=== PATIENT | female | born 1990 | race Caucasian/White ===

== ENCOUNTER 2016-10-04 08:38 | Emergency (ER) | payer MEDICAID ==
[~2016-10-04] VITALS: Ht 160 cm; Wt 58.5 kg
[2016-10-04 08:40] VITALS: Ht 160 cm; Wt 58.5 kg
[2016-10-04] MEDS ORDERED: ACETAMINOPHEN 500 MG TAB PO STA (09:36)
[2016-10-04] MEDS ORDERED: OSLT75C PO (09:44)
[2016-10-04] MEDS ORDERED: D-ME473S18 PO (09:45)
[2016-10-04] MEDS ORDERED: NAPR-688 PO (09:45)
--- NOTE | 2016-10-04 10:22 | ERD ---
ER Documentation Chief Complaint Date/Time DATE: 10/04/16 TIME: 10:18 Chief Complaint fever , body ache , sore throat x 2 days HPI This is a 26-year-old female that presents to the ER with fever, sore throat, cough, body aches, nasal congestion for the last 2 days patient states that her sore throat is worse whenever she swallows. She however denies any difficulty in swallowing. She denies any chest pain or shortness of breath. Patient's cough is dry and it has worsened today. There are a lot of sick people at work. Patient took NyQuil last night, this helped a little bit. Patient denies any urinary frequency or dysuria. She denies any n/v/d. ROS 12 point review of systems was done, all negative except per HPI. Medications Home Meds Active Scripts Dextromethorphan Hb-Promethazine Hcl (Promethazine DM Syrup) 473 Ml Syrup, 10 ML PO Q6 Y for COUGH for 3 Days, ML Prov:DEB LILLY 10/04/16 Naproxen* (Naproxen*) 500 Mg Tablet, 500 MG PO BID Y for PAIN for 5 Days, TAB Prov:DEB LILLY 10/04/16 Oseltamivir Phosphate* (Tamiflu*) 75 Mg Capsule, 75 MG PO BID for 5 Days, CAP Prov:DEB LILLY 10/04/16 PMhx/Soc Medical and Surgical Hx: pt denies Medical Hx, pt denies Surgical Hx Physical Exam Vitals Vital Signs Date Time Temp Pulse Resp B/P Pulse Ox O2 Delivery O2 Flow Rate FiO2 10/04/16 08:40 98.9 73 18 109/58 100 Physical Exam GENERAL: The patient is well-developed, well-nourished, in no acute distress. NECK: Cervical spine is non tender with no step off. Supple, no nuchal rigidity HEENT: Atraumatic. Pupils equal, round and reactive to light. Extraocular muscles are grossly intact. Conjunctivae pink, no discharge. Bilateral tympanic membranes are clear with no evidence of erythema, effusion or dulling of the light reflex. Tonsilar erythema with no exudates or uvular deviation. Clear rhinorrhea. RESPIRATORY: Clear to auscultation bilaterally. There are no rales, wheezes or rhonchi. HEART: Regular rate and rhythm. No murmurs, clicks, rubs or gallops. EXTREMITIES: No clubbing or cyanosis. Full range of motion. Grossly neurovascularly intact. NEUROLOGIC: Alert and oriented. Cranial nerves II through XII are intact. SKIN: There is no rash. The skin is warm and dry. Results 24 hrs Current Medications Medications (Trade) Dose Ordered Sig/Cierra Route PRN Reason Start Time Stop Time Status Last Admin Dose Admin Acetaminophen (Tylenol Tab) 1,000 mg ONCE STAT PO 10/04/16 09:36 10/04/16 09:38 DC 10/04/16 09:43 Procedures/MDM Differential diagnosis includes but is not limited to; Viral URI, allergic rhinitis, bronchitis, pertussis,pneumonia. This is likely viral in etiology. Clinical suspicion for pneumonia is low as patient appears well, is not hypoxic or in any respiratory distress. Additionally, patients physical examination is benign. Plan was discussed with patient they understand and agree. Patient needs to follow up with PCP in 1-2 days or return to ER sooner if symptoms worsen. Departure Diagnosis: Primary Impression: Influenza-like symptoms Condition: Stable Patient Instructions: Influenza (Adult) Additional Instructions: Call your primary care doctor TOMORROW for an appointment during the next 1-2 days.See the doctor sooner or return here if your condition worsens before your appointment time. DEB LILLY Oct 04, 2016 10:22
== END 2016-10-04 09:50 | disposition home or self-care (01) ==
LOC: FTE 08:38
DX: R50.9 Fever, unspecified (principal); J02.9 Acute pharyngitis, unspecified; R05 Cough; R09.81 Nasal congestion
CPT/HCPCS: 87400; Z7502; Z7610; 99284

== ENCOUNTER 2017-01-22 14:22 | Emergency (ER) | payer MEDICAID, OTHER ==
[~2017-01-22] VITALS: Ht 165.1 cm; Wt 58.0 kg
[~2017-01-22 14:22] MED LIST: D-ME473S18 PO; NAPR-688 PO; OSLT75C PO
[2017-01-22 14:46] VITALS: Ht 165.1 cm; Wt 58.0 kg
[2017-01-22] MEDS ORDERED: KETOROLAC 30 MG INJ IM STA (15:10)
[2017-01-22 15:31] LABS: URINE BLOOD (Dip) POC Trace-intact (NEGATIVE)
--- NOTE | 2017-01-22 16:03 | RADRPT ---
PROCEDURE: XR Lumbar Spine. CLINICAL INDICATION: Low back pain. TECHNIQUE: Three-view of the lumbar spine available for review COMPARISON: None available FINDINGS: There is normal mineralization, architecture and alignment. No fractures or osseous lesions are bhavani ntified. No subluxation is identified. The disk spaces are unremarkable. The facet joints are unr emarkable. The soft tissues are unremarkable. IMPRESSION: Unremarkable lumbar spine x-ray. RPTAT: [facility] .Dwayne Lakhani MD, MD Date Time Electronically viewed and signed by .Dwayne Lakhani MD, on 01/22/2017 16:03 .B/
[2017-01-22] MEDS ORDERED: CYCL-319 PO (16:38)
[2017-01-22] MEDS ORDERED: NAPR-260 PO (16:38)
--- NOTE | 2017-01-22 16:41 | ERD ---
ER Documentation Chief Complaint Date/Time DATE: 01/22/17 TIME: 16:41 Chief Complaint low back pain x 2 weeks; possibly from lifting HPI This is a 26-year-old female presenting to the emergency department complaining of lumbar back pain for the past 2 weeks. Patient states that the last day of work 2 weeks ago she was lifting a lot of heavy boxes and pain started the next day. Patient rates the pain 8 out of 10 she states that it is getting worse in the past 2 weeks. Is increased with movement. Patient has not tried any medication for this. She states that her last menstrual period was a week ago. She denies saddle anesthesia, bladder or bowel incontinence ROS All systems reviewed and are negative except as per history of present illness. Medications Home Meds Active Scripts Cyclobenzaprine Hcl* (Cyclobenzaprine Hcl*) 10 Mg Tablet, 10 MG PO TID, #30 TAB Prov:AZALEA HOLMAN PA-C 01/22/17 Naproxen* (Naprosyn*) 500 Mg Tablet, 500 MG PO BID Y for PAIN AND/OR INFLAMMATION, #30 TAB Prov:AZALEA HOLMAN PA-C 01/22/17 Dextromethorphan Hb-Promethazine Hcl (Promethazine DM Syrup) 473 Ml Syrup, 10 ML PO Q6 Y for COUGH for 3 Days, ML Prov:DEB LILLY 10/04/16 Naproxen* (Naproxen*) 500 Mg Tablet, 500 MG PO BID Y for PAIN for 5 Days, TAB Prov:DEB LILLY 10/04/16 Oseltamivir Phosphate* (Tamiflu*) 75 Mg Capsule, 75 MG PO BID for 5 Days, CAP Prov:DEB LILLY 10/04/16 Allergies Allergies: Uncoded Allergies: PENICILLIN (Allergy, Unknown, 01/22/17) PMhx/Soc Medical and Surgical Hx: pt denies Medical Hx, pt denies Surgical Hx Hx Alcohol Use: No Hx Substance Use: No Hx Tobacco Use: No Smoking Status: Never smoker Physical Exam Vitals Vital Signs Date Time Temp Pulse Resp B/P Pulse Ox O2 Delivery O2 Flow Rate FiO2 01/22/17 14:46 98.4 70 18 109/65 100 Physical Exam GENERAL: WD/WN, in no apparent distress, non-toxic appearing HENT: NC/AT EYES: Conjunctiva normal NECK: Supple PULM: Normal labored breathing CV: Good capillary refill GI: Non-distended, no guarding BACK: no deformities noted, normal spinal curvature, TTP on lumbar region, mild tenderness on lumbar spine midline, negative straight leg raise EXT: No clubbing, cyanosis, or edema NEURO: Moves on all fours, sensation intact, normal gait SKIN: intact PSYCH: Normal mood Results 24 hrs Laboratory Tests Test 01/22/17 15:34 Bedside Urine pH (LAB) 5.5 Bedside Urine Protein (LAB) Negative Bedside Urine Glucose (UA) Negative Bedside Urine Ketones (LAB) Negative Bedside Urine Blood Trace-intact Bedside Urine Nitrite (LAB) Negative Bedside Urine Leukocyte Esterase (L Negative Current Medications Medications (Trade) Dose Ordered Sig/Cierra Route PRN Reason Start Time Stop Time Status Last Admin Dose Admin Ketorolac Tromethamine (Toradol) 30 mg ONCE STAT IM 01/22/17 15:10 01/22/17 15:12 DC 01/22/17 15:29 Procedures/MDM This is a 26-year-old female presents to the ER with lumbar back pain, low suspicion for spinal abscess, vertebral fracture, cauda equina syndrome, spinal stenosis due to physical examination. An x-ray of the lumbar region was done and radiologist it was unremarkable. There was no evidence of fracture dislocation. In the ED patient was given Toradol. Patient is neurovascularly intact and stable to be discharged home to follow-up with the primary care physician for possible orthopedic referral or physical therapy. Prescriptions naproxen and Flexeril was given to patient, discussed to return to the ED if not improving as expected . Patient understood and agreed with this plan. Departure Diagnosis: Primary Impression: Lumbar strain Encounter type: initial encounter Qualified Code: S39.012A - Lumbar strain, initial encounter Condition: Stable Patient Instructions: Causes of Lumbar (Low Back) Pain, Back Exercises, Lumbar , Back Pain (Acute Or Chronic) Additional Instructions: FOLLOW UP WITH YOUR PRIMARY CARE PHYSICIAN TOMORROW.Return to this facility if you are not improving as expected. Take all medicines as directed. Return to this facility if you are not improving as expected. You have been given a medicine which may cause drowsiness.DO NOT DRIVE OR OPERATE DANGEROUS MACHINERY while taking this medicine! AZALEA HOLMAN PA-C Jan 22, 2017 16:41
== END 2017-01-22 17:00 | disposition home or self-care (01) ==
LOC: FTE 14:22
DX: S39.012A Strain of muscle, fascia and tendon of lower back, initial encounter (principal); X50.0XXA Overexertion from strenuous movement or load, initial encounter; Y92.89 Other specified places as the place of occurrence of the external cause
CPT/HCPCS: 72100; 81003; J1885; 96372